=== PATIENT | female | born 1990 | race Caucasian/White ===

== ENCOUNTER → 2020-08-06 | Outpatient (REF) ==
[~2020-08-06] MED LIST: BACTRIM DS 8001 TAB PO; BCP TD; GLUCOPHAGE1000 MG PO; VALTREX1 GM PO
== END ==
LOC: ZLAB.AMS 08:22
DX: Z20.822 Contact with and (suspected) exposure to COVID-19 (principal)

== ENCOUNTER → 2021-05-06 | Outpatient (CLI) | payer BC | LOC: COL.RAD 10:56 | DX: N92.1 Excessive and frequent menstruation with irregular cycle (principal) ==

== ENCOUNTER 2023-11-23 05:47 | Emergency (ER) | payer BC ==
[~2023-11-23] VITALS: Ht 165.1 cm; Wt 53.6 kg
[2023-11-23 05:52] VITALS: TEMP 97.4
[2023-11-23] MEDS ORDERED: Ibuprofen 600 MG TAB PO ONE (06:00)
[2023-11-23 06:35] VITALS: BP 100/65; PULSE 56
== END 2023-11-23 06:38 | disposition home or self-care (01) ==
LOC: COL.ER 05:47
DX: S49.92XA Unspecified injury of left shoulder and upper arm, initial encounter (principal); W50.0XXA Accidental hit or strike by another person, initial encounter; Y93.45 Activity, cheerleading